=== PATIENT | male | born 1950 | race African-American/Black ===

== ENCOUNTER 2020-07-14 11:50 | Inpatient (IN) | payer MEDICARE, OTHER ==
[~2020-07-14] VITALS: Ht 188 cm; Wt 110.8 kg
[2020-07-14] MEDS ORDERED: FUROSEMIDE 40 MG/4 ML VIAL IV ONE ×2 (12:15→14:15)
[2020-07-14 12:52] LABS: Basophils # (auto) 0 10 ^3/uL (0-0.2); Basophils % (auto) 0.5 % (0.0-2.0); Eosinophils # (auto) 0.1 10 ^3/uL (0-0.8); Eosinophils % (auto) 1.3 % (0.0-7.0); Hematocrit 40.3 % (41.0-53.0); Hemoglobin 13.1 g/dL (13.5-17.5); Lymphocytes # (auto) 1.3 10 ^3/uL (0.4-5.4); Lymphocytes % (auto) 25.8 % (10.0-50.0); Mean Corpuscular Hgb Conc. 32.6 g/dL (32.0-36.0); Monocytes # (auto) 0.6 10 ^3/uL (0-1.3); Monocytes % (auto) 12.6 % (0.0-12.0); Neutrophils % (auto) 59.8 % (37.0-80.0); Nucleated Red Blood Cells % 0.1 %; Platelet Count (auto) 178 10^3/uL (140-450); Red Blood Cells 4.69 10^6/uL (4.5-5.90); Red Cell Distribution Width 16.5 % (11.8-14.3); White Blood Cell 5.1 10^3/uL (4.4-10.8)
[2020-07-14 13:06] LABS: INR 1.03 (0.9-1.15); Partial Thromboplastin Time 28.2 sec (23.0-31.2)
[2020-07-14 13:13] LABS: Urine WBC None Seen /hpf (0 - 3)
[2020-07-14 13:13] LABS: Albumin 3.1 g/dL (3.4-5.0); Calcium 8.5 mg/dL (8.5-10.1); Potassium 3.7 mmol/L (3.5-5.1)
[2020-07-14 13:19] LABS: Urine Bacteria NONE SEEN /hpf (None Seen); Urine Blood Negative /uL (Negative); Urine Specific Gravity 1.008 (1.001-1.035)
[2020-07-14 13:19] LABS: BUN/Creatinine Ratio 10.4; Bilirubin, Total 0.4 mg/dL (0.2-1.0); Total Protein 6.8 g/dL (6.4-8.2)
[2020-07-14] MEDS ORDERED: ALUM & MAG HYDROX-SIMETH LIQ(MAALOX) 30 ML PO ONE (14:00)
[2020-07-14] MEDS ORDERED: ONDANSETRON HCL 4 MG/2 ML VIAL IV PRN (14:00)
[2020-07-14] MEDS ORDERED: LORazepam 0.5 MG TAB PO PRN (14:00)
[2020-07-14] MEDS ORDERED: MORPHINE SULFATE 4 MG/ML SYR/VIAL IV PRN (14:00)
[2020-07-14] MEDS ORDERED: NITROGLYCERIN 0.4 MG SL TAB SL PRN ×2 (14:00)
[2020-07-14] MEDS ORDERED: MORPHINE SULF INJ 2 MG/ML SYRINGE 1ML IV PRN (14:00)
[2020-07-14] MEDS ORDERED: IPRATROPIUM BROM 0.5 MG/2.5ML INH SOL NEB ONE (14:30)
[2020-07-14] MEDS: DOXYCYCLINE 100MG/250ML 250 ML IV SCH (14:35)
[2020-07-14 15:01] VITALS: BP 131/87
[2020-07-14] MEDS ORDERED: BISA-13 PO (16:42)
[2020-07-14] MEDS ORDERED: AMLO5TAB15 PO (16:42)
[2020-07-14] MEDS ORDERED: METO-169 PO (16:42)
[2020-07-14] MEDS ORDERED: CHOL500035 PO (16:42)
[2020-07-14] MEDS ORDERED: ROSU20TA14 PO (16:42)
[2020-07-14] MEDS ORDERED: LISI-275 PO (16:42)
[2020-07-14] MEDS ORDERED: FURO20TA3 PO ×2 (16:42→17:18)
[2020-07-14] MEDS ORDERED: LISI40TA11 PO (17:15)
[2020-07-14] MEDS ORDERED: DOCU250C3 PO (17:19)
[2020-07-14] MEDS ORDERED: ASPI-498 PO (17:20)
[2020-07-14] MEDS ORDERED: OMEG100078 PO (17:21)
[2020-07-14] MEDS ORDERED: ASCO100076 PO (17:21)
[2020-07-14] MEDS ORDERED: APIX5TAB PO (17:21)
[2020-07-14] MEDS ORDERED: OMEP-434 PO (17:22)
[2020-07-14] MEDS ORDERED: METO1TAB9 PO (17:24)
[2020-07-14] MEDS: IPRATROPIUM BROM 0.5 MG/2.5ML INH SOL NEB SCH ×2 (18:25→22:22)
--- NOTE | 2020-07-14 20:20 | NUR ---
Patient admitted to room 216B Patient arrived by wheelchair and ambulated from the bathroom to the bed with no assistance. Patient is A&Ox4, respirations even and non-labored without SOB at this time or s/s of distress. VS: 157/81, HR 62, 97%, RR 19, T 98.5, patient has no c/o pain at this time. Telemetry #38 SR 70s. Discussed POC with patient who verbalized understanding. Oriented the patient to the room, bathroom, call light, and bed controls. Advised patient to call for assistance, urinal bedside. Bed in lowest locked position with 2 side rails up, call light within reach. Will continue to monitor Q1hr and PRN.
[2020-07-14 22:00] VITALS: BP 157/81
[2020-07-14] MEDS ORDERED: CARVEDILOL 3.125 MG TAB PO SCH (22:00)
[2020-07-14] MEDS: APIXABAN 5 MG TAB PO SCH (22:44)
[2020-07-14] MEDS: ATORVASTATIN 20 MG TAB PO SCH (22:45)
[2020-07-14] MEDS: CARVEDILOL 12.5 MG TAB PO SCH (22:46)
--- NOTE | 2020-07-14 23:04 | NUR ---
Bed alarm on Discussed with patient the need to call for assistance if he needs to get up. Patient verbalized understanding and said he would call for help to the restroom. Urinals bedside, call light within reach.
[2020-07-15] MEDS: DOXYCYCLINE 100MG/250ML 250 ML IV SCH ×2 (02:34→14:46)
[2020-07-15] MEDS: IPRATROPIUM BROM 0.5 MG/2.5ML INH SOL NEB SCH ×6 (03:04→22:20)
[2020-07-15] MEDS: FUROSEMIDE 20 MG/2 ML VIAL IV SCH ×2 (05:11→17:12)
[2020-07-15 05:43] VITALS: BP 151/90
--- NOTE | 2020-07-15 06:52 | NUR ---
Rounding Patient sleeping, respirations even and non-labored with no s/s of distress at this time
--- NOTE | 2020-07-15 08:15 | NUR ---
Opening Shift Note Assumed care of patient, awake, alert, and oriented. No S/S of distress/SOB or pain. Bed in lowest/locked position, bed rails up x2, call light within reach. Instructed on POC and to call for assist PRN. Will continue to monitor for changes Q1hr and PRN.
[2020-07-15] MEDS: DOCUSATE SOD 100 MG CAP PO SCH (09:21)
[2020-07-15] MEDS: CARVEDILOL 12.5 MG TAB PO SCH ×2 (09:21→21:25)
[2020-07-15] MEDS: CLOPIDOGREL BISULFATE 75 MG TAB PO SCH (09:22)
[2020-07-15] MEDS: APIXABAN 5 MG TAB PO SCH ×2 (09:22→21:25)
[2020-07-15] MEDS: NICOTINE 14 MG/24HR TOPICAL PATCH TD SCH (09:23)
[2020-07-15 09:28] VITALS: BP 127/81
[2020-07-15] MEDS ORDERED: LISINOPRIL 5 MG TAB PO SCH (10:00)
[2020-07-15] MEDS ORDERED: ASPirin 81 mg TAB PO SCH (10:00)
[2020-07-15 10:30] LABS: Calcium 8.9 mg/dL (8.5-10.1); Potassium 3.5 mmol/L (3.5-5.1)
[2020-07-15 10:32] LABS: BUN/Creatinine Ratio 13.7
--- NOTE | 2020-07-15 11:55 | NUR ---
ROUNDS DR Oneida RODRIGUEZ AT BEDSIDE
[2020-07-15 12:45] VITALS: BP 135/86
[2020-07-15 16:29] VITALS: BP 124/79
--- NOTE | 2020-07-15 19:40 | NUR ---
Opening Shift Note Assumed care of patient, awake and alert. No S/S of distress/SOB or pain. Instructed on POC and to call for assist PRN. Bed in lowest locked position, call light within reach, side rails up x2, fall precautions in place. Will continue to monitor for changes Q1hr and PRN.
[2020-07-15] MEDS: ATORVASTATIN 20 MG TAB PO SCH (21:25)
[2020-07-15 21:28] VITALS: BP 131/92
--- NOTE | 2020-07-15 22:12 | NUR ---
AT BEDSIDE FOR MED NEB TX, PT TOLERATED WELL. NO SIGNS OF RESPIRATORY DISTRESS. PT REFUSED BIPAP FOR NOC, PT MADE AWARE TO HAVE RT PAGED IF NEEDED, WILL CONTINUE TO MONITOR. Addendum: 07/15/20 at 2214 by SALIMA MEJIA, RT WRONG PT.
[2020-07-16] MEDS: IPRATROPIUM BROM 0.5 MG/2.5ML INH SOL NEB SCH ×3 (02:00→10:26)
[2020-07-16] MEDS: DOXYCYCLINE 100MG/250ML 250 ML IV SCH (02:53)
[2020-07-16 05:00] VITALS: BP 137/76
[2020-07-16] MEDS: FUROSEMIDE 20 MG/2 ML VIAL IV SCH (06:26)
--- NOTE | 2020-07-16 08:07 | NUR ---
RECEIVED PATIENT ALERT AND ORIENTED X4, NOT IN DISTRESS, CLEAR LS IN BILATERAL UPPER AND DIMINISHED IN LOWER LUNG LOBES, RR=18 SAT=95%, DEEP BREATHING AND COUGHING WAS ENCOURAGED, VERBALIZED UNDERSTANDING, SR R=86 ON TELE MONITOR, DENIED CP OR SOB AT THIS MOMENT, ABDOMEN SOFT WITH ACTIVE BS, LAST BM=07/15/20 REPORTED, SKIN IS INTACT WARM TO TOUCH, RADIAL AND PEDAL PULSES PALPABLE, DENIED PAIN AT THIS MOMENT, RESTING ON BED, HEAD OF BED ELEVATED, BED ON LOW POSITION, RAILS UP X2, CALL LIGHT ON REACH, WILL CONTINUE MONITORING.
[2020-07-16 09:00] VITALS: BP 131/94
[2020-07-16] MEDS: DOCUSATE SOD 100 MG CAP PO SCH (10:03)
[2020-07-16] MEDS: CARVEDILOL 12.5 MG TAB PO SCH (10:04)
[2020-07-16] MEDS: APIXABAN 5 MG TAB PO SCH (10:04)
[2020-07-16] MEDS: CLOPIDOGREL BISULFATE 75 MG TAB PO SCH (10:04)
[2020-07-16] MEDS: NICOTINE 14 MG/24HR TOPICAL PATCH TD SCH (10:05)
--- NOTE | 2020-07-16 11:15 | NUR ---
OUT OF BED AND AMBULATED AROUND THE UNITE X1, TOLERATED SHOWER INDEPENDENTLY, BACK TO THE BED AND RESTING, PENDING D/C HOME TODAY, WILL CONTINUE MONITORING.
[2020-07-16 12:25] VITALS: BP 137/84
--- NOTE | 2020-07-16 13:05 | NUR ---
D/C INSTRUCTIONS AND EDUCATION PROVIDED, MEDICATION PRESCRIPTION AND EDUCATION PROVIDED, VERBALIZED UNDERSTANDING, FOLLOW UP ARRANGEMENT WITH [facility] A[facility] BE DONE BY CALLING FROM HOME REPORTED, D/C TELE AND IV SITE, TOLERATED WELL, NOT IN DISTRESS, DENIED PAIN, VS T=97.8 RR=18 SAT=97% P=87 IX=869/78, WC PROVIDED, D/C HOME WALKING, TOOK ALL BELONGINGS AND LEFT NOTHING BEHIND.
== END 2020-07-16 13:00 | disposition home or self-care (01) | DRG 291 ==
LOC: ER 11:50 → TELE 11:51 → TELE-CENTR 20:20
PROVIDERS: ADMIT Hospitalist; ATTEND Hospitalist
DX: I13.0 Hypertensive heart and chronic kidney disease with heart failure and stage 1 through stage 4 chronic kidney disease, or unspecified chronic kidney disease (principal); J18.9 Pneumonia, unspecified organism; N17.0 Acute kidney failure with tubular necrosis; I50.23 Acute on chronic systolic (congestive) heart failure; E44.1 Mild protein-calorie malnutrition; I48.20 Chronic atrial fibrillation, unspecified; J44.0 Chronic obstructive pulmonary disease with (acute) lower respiratory infection; D64.9 Anemia, unspecified; E66.01 Morbid (severe) obesity due to excess calories; N18.3 Chronic kidney disease, stage 3 (moderate); E78.00 Pure hypercholesterolemia, unspecified; E78.5 Hyperlipidemia, unspecified; F17.210 Nicotine dependence, cigarettes, uncomplicated; J20.9 Acute bronchitis, unspecified; I50.82 Biventricular heart failure; Z79.01 Long term (current) use of anticoagulants; Z86.73 Personal history of transient ischemic attack (TIA), and cerebral infarction without residual deficits; Z82.49 Family history of ischemic heart disease and other diseases of the circulatory system; Z91.19 Patient's noncompliance with other medical treatment and regimen; Z68.31 Body mass index [BMI] 31.0-31.9, adult
CPT/HCPCS: 36415; 71045; 80048; 80053; 81001; 83036; 83880; 84484; 85025; 85610; 85730; 87040; 87086; 93005; 93306; 94640; G0378; J3490